=== PATIENT | female | born 1965 | race Caucasian/White ===

== ENCOUNTER 2023-07-27 09:07 | Outpatient (AMB) | payer OTHER, SELFPAY ==
--- NOTE | 2023-07-27 09:47 | MHC.OFFWIV ---
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 States positive exposure to sick contact at work. Denies any fever or chills. Had pain this morning while trying to eat breakfast and decided to come be evaluated. [facility] Social History Patient Tobacco Use Status: Never used Tobacco Review of Systems Const All systems reviewed & are unremarkable except as noted in HPI and below Physical Exam Vital Signs: Last Vital Signs Temp 98.4 F 07/27/23 09:48 Pulse 80 07/27/23 09:48 BP 112/76 07/27/23 09:48 Pulse Ox 97 07/27/23 09:48 Oxygen Delivery Method Room Air 07/27/23 09:48 Const General: cooperative and no acute distress HEENT Head: Yes normal to inspection Ears: hearing grossly normal bilaterally General nose exam: Normal external nose present Face and sinus: Yes normal facial exam Mouth: Normal oral and palatal mucosa present and tongue normal Throat: Yes posterior oropharynx abnormal (tonsilar hypertrophy, erythema, exudate b/l) Neck Neck: Yes no lymphadenopathy Resp Effort & Inspection: normal respiratory effort Skin General skin exam: no rashes or lesions noted Psych Appearance: grossly normal Mental Status: mental status grossly normal Speech and movement: Normal speech and movement present Assessment & Plan Assessment & Plan (1) Strep pharyngitis: Code(s): J02.0 - Streptococcal pharyngitis Plan: Rapid strep positive. Will start on Pen V bid 10 days. Reviewed indications, use, possible side effects of medication. Advised warm saltwater gargles, [id number] lozenges/throat spray, and Tylenol as needed for symptomatic treatment. She may return to the clinic if she does not improve with time and treatment. She verbalizes understanding and agrees to plan. Work note provided. Medications: New penicillin V potassium 500 mg PO BID 20 tabs 0RF 10 days J02.0 - Streptococcal pharyngitis Coding Level of Care Code Est Pt Level 3 (24220) Diagnoses Strep pharyngitis J02.0
[2023-07-27 09:48] VITALS: BP 112/76; PULSE 80; TEMP 36.9; O2SAT 97
== END 2023-07-27 10:21 | disposition home or self-care (01) ==
PROVIDERS: PCP Internal Medicine; Visit Provider Nurse Practitioner Family
DX: J02.0 Streptococcal pharyngitis (principal); J02.9 Acute pharyngitis, unspecified
CPT/HCPCS: 87880; 99213